=== PATIENT | female | born 1975 | race American Indian/Alaskan Native ===

== ENCOUNTER 2021-03-28 07:51 | Inpatient (IN) | payer MEDICAID ==
[2021-03-26 10:04] LABS: Basophils # (Auto) 0.1 K/mm3 (0.0-0.1); Basophils % (Auto) 2.1 % (0.0-1.8); Eosinophils # (Auto) 0.3 K/mm3 (0.0-0.4); Eosinophils % (Auto) 6.5 % (0.0-4.3); Lymphocytes # (Auto) 1.9 K/mm3 (1.2-5.4); Lymphocytes % (Auto) 36.6 % (13.4-35.0); Mean Corpuscular HGB Conc 29 % (30-34); Monocytes # (Auto) 0.7 K/mm3 (0.0-0.8); Monocytes % (Auto) 13.5 % (0.0-7.3); Platelet Count 625 K/mm3 (140-440); Red Cell Distribution Width 17.7 % (13.2-15.2)
[2021-03-26 10:20] LABS: Hematocrit 25.6 % (30.3-42.9); Hemoglobin 7.5 gm/dl (10.1-14.3); Mean Corpuscular Volume 66 fl (79-97)
[~2021-03-28 07:51] MED LIST: ACETAMINOPHEN 500 MG TAB PO NR; BUPIVACAINE/PF (0.5%) 5 MG/1 ML 30 ML VIAL INFILTRATI ONE; CELECOXIB 200 MG CAP PO NR; MAGNESIUM OXIDE 400 MG TAB PO NR; MIDAZOLAM 2 MG/2 ML INJ IV NR; SODIUM CHLORIDE 0.9% IRR 1,500 ML BOTTLE IR ONE; fentaNYL 100 MCG/2 ML INJ IV NR
[2021-03-28] MEDS ORDERED: SODIUM CHLORIDE 0.9% 500 ML 500 ML IV NR (08:00)
[2021-03-28] MEDS ORDERED: BUPIVACAINE/PF (0.5%) 5 MG/1 ML 30 ML VIAL INFILTRATI ONE (11:54)
[2021-03-28] MEDS ORDERED: fentaNYL 100 MCG/2 ML INJ IV PRN (12:00)
[2021-03-28] MEDS ORDERED: MORPHINE 2 MG/1 ML INJ IV PRN (12:00)
--- NOTE | 2021-03-28 12:02 | Anesthesia Day of Surgery ---
Anesthesia Day of Surgery - Day of Surgery Patient Examined: Yes Patient H&P Reviewed: Yes Patient is NPO: Yes
--- NOTE | 2021-03-28 12:02 | Anesthesia Consultation ---
Anesthesia Consult and Med Hx Date of service: 03/28/21 - Airway Anesthetic Teeth Evaluation: Good ROM Head & Neck: Adequate Mental/Hyoid Distance: Adequate Mallampati Class: Class II Intubation Access Assessment: Good - Pre-Operative Health Status ASA Pre-Surgery Classification: ASA2 Proposed Anesthetic Plan: General Nerve Block: TAP - Pulmonary Hx Smoking: No - Central Nervous System Hx Psychiatric Problems: No - Gastrointestinal Hx Gastroesophageal Reflux Disease: No - Hematic Hx Anemia: Yes (7.5/25.6) Hx Sickle Cell Disease: No - Other Systems Hx Cancer: No Hx Obesity: No
[2021-03-28] MEDS: LACTATED RINGERS 1,000 ML IV SCH ×2 (12:25→22:31)
[2021-03-28] MEDS ORDERED: ONDANSETRON 4 MG/2 ML INJ IV PRN ×2 (12:52→17:51)
[2021-03-28] MEDS ORDERED: CITRIC ACID-SOD CITRATE 500 ML IV ONE (12:57)
[2021-03-28] MEDS ORDERED: ACETAMINOPHEN 500 MG TAB PO ONE (13:00)
[2021-03-28] MEDS ORDERED: MAGNESIUM OXIDE 400 MG TAB PO ONE (13:00)
[2021-03-28] MEDS ORDERED: BUPIVACAINE/PF (0.25%) 2.5 MG/ML 30 ML VIAL INFILTRATI ONE (13:30)
[2021-03-28] MEDS ORDERED: dexAMETHasone 4 MG/ML VIAL ONE (13:30)
[2021-03-28] MEDS ORDERED: ceFAZolin/STERILE WATER 2 GM/20 ML SYRINGE IV NR (13:42)
[2021-03-28] MEDS ORDERED: ceFAZolin/Water 2 GM/20 ML 2 GM/20 ML SYRINGE IV ONE (13:49)
[2021-03-28] MEDS ORDERED: HYDROmorphone 1 MG/1 ML INJ ONE (14:01)
[2021-03-28] MEDS ORDERED: ROCURONIUM 50 MG/5 ML INJ IV ONE (14:02)
[2021-03-28] MEDS ORDERED: LIDOCAINE MPF (2%) 20 MG/1 ML VIAL 5 ML ONE (14:02)
[2021-03-28] MEDS ORDERED: propofoL 200 MG/20 ML VIAL IV ONE (14:02)
[2021-03-28] MEDS ORDERED: SODIUM CHLORIDE 0.9% IRR 1,500 ML BOTTLE IR ONE (15:11)
[2021-03-28] MEDS ORDERED: CITRIC ACID-SOD CITRATE SOLN 500 ML IV SOLN IV ONE (15:11)
[2021-03-28] MEDS ORDERED: dexAMETHasone 20 MG/5 ML VIAL ONE (15:58)
[2021-03-28] MEDS ORDERED: ONDANSETRON 4 MG/2 ML INJ ONE (15:58)
[2021-03-28] MEDS ORDERED: LACTATED RINGERS 1,000 ML ONE (16:11)
[2021-03-28] MEDS ORDERED: NEOSTIGMINE 10MG/10 ML INJ MDV ONE (17:42)
[2021-03-28] MEDS ORDERED: GLYCOPYRROLATE 0.4 MG/2 ML INJ ONE (17:42)
[2021-03-28] MEDS ORDERED: KETOROLAC 30 MG/1 ML INJ ONE (17:42)
[2021-03-28] MEDS ORDERED: HYDROmorphone 1 MG/1 ML INJ IV PRN (17:51)
[2021-03-28] MEDS ORDERED: KETOROLAC 30 MG/1 ML INJ IV PRN (17:51)
[2021-03-28] MEDS ORDERED: ACETAMINOPHEN 325 MG TAB PO PRN (17:51)
--- NOTE | 2021-03-28 18:20 | Post Anesthesia Evaluation ---
- Post Anesthesia Evaluation Patient Participated: Yes Airway Patent: Yes Stable Respiratory Function: Yes Nausea/Vomiting: No Temp > 96.8F: Yes Pain Manageable: Yes Adequeate Hydration: Yes Anesthesia Complications: No Block Receding Appropriately: Yes Patient on Ventilator: No
--- NOTE | 2021-03-28 18:24 | Procedure Note ---
Date of procedure: 03/28/21 Pre-op diagnosis: symptomatic uterine fibroids, severe anemia, pelvic pain Post-op diagnosis: same Procedure: Preop: symptomatic uterine fibroids, previous tubal ligation, desires definitive procedure, severe anemia, pelvic pain. Postop: same and areas of endometriotic implants/adenomyosis seen to lower uterine segment near cervix Procedure: Total abdominal hysterectomy and bilateral Salpingectomy with lysis of adhesions After the risks, benefits and alternatives of the procedure was discussed, pt signed consents and was taken to the OR via stretcher. Pt was given tap block Time out done, Pt given general anesthesia and when same was adequate, pt was prepped and draped in usual sterile fashion and cerda cath placed. Pt was given antibiotics per SCIP protocol Pfanennenstiel skin was made and taken sharply to the underlying layer of the fascia. The fascia was incised in the midline and extended bilaterally using electrocautery and also by blunt dissection. The superior and inferior aspect of the rectus fascia was taken down using electrocautery. The rectus muscle was then elevated centrally and the peritoneal cavity was entered sharply. The extensively omental adhesions were lysed using sharply until the bladder could clearly be seen. Moist laparotomy sponges were used to pack away the bowel and the O-Suni Beard retractor used for added exposure. Attention turned to the round ligaments bilaterally and same was transected with electrocautery on the right and ligasure device on the left. The bladder peritoneum was sharply taken down from right towards the left side and sponge stick used to push bladder downwards off the cervix. The uteroovarian ligament on the left was then transected using ligasure device and the distal segment of the fallopian tube removed. Additional figure of 8 sutures used for added hemostasis with more scarring noted on the left side. Left ovary wnl. Attention then turned to the right uteroovarian ligament and same clamped with lisseth and transected and doubly suture ligated. The uterine vessel were then skeletonized bilaterally and uterine vessels doubly clamped transected and suture ligated. Serial clamping using ligasure device down on left and until vaginal angle reached and same clamped with uterosacral ligament. The right side extensive adhesions that were lysed using metzenbaum and serial clamps placed using heany clamps, transection and suture ligation using 0-vicryl in a serial manner until the vaginal angles were reached the Uterosacral was clamped, transected and suture ligated then anchored to the right vaginal angle after cervix amputated. Care taken to do sharp dissection and then push the bladder flap downwards prior to removing the entire uterus and cervix attached. The vaginal cuff was closed with interrupted 0-vicryl suture. Electrocautery used to maintain hemostasis and surgicel powder as well. The bladder flap was closed with 3-0 vicryl centrally. Copious irrigation done to the pelvis with warm normal saline and all pedicles hemostatic. Instruments, laparotomy sponges were then removed and the anterior rectus and scar tissue closed with 0-vicryl in a running fashion Fascia then closed with 0-vicryl in a running fashion. Subcutaneous tissue irrigated with normal saline and reapproximated with 3-0 vicryl suture Skin closed with 4-0 monocryl in a subcutaneous fashion, steristrips placed and pressure dressing applied Pt extubated without difficulty and pt taken to recovery room stable. Sponge, lap, needle and instrument counts correct x2 INTAKE: 2000cc crystalloids and 2units PRBC OUTPUT: 150cc EBL: 200cc Complications: none Findings: Boggy 12-14 week size uterus with irregular contour and extensive scarring anterior towards the bladder, endometriotic dark fluid noted anterior with sharp dissection towards the bladder. Normal ovaries bilaterally. Right tube with cyst of morgagni and previous ligation to both tubes identified. Intraoperative omental adhesions extensive to anterior abdominal wall and upper portion of bladder. Normal appendix seen Anesthesia: WILLIAMA Surgeon: SUMA CASTILLO Oil Dispatcher: SUGAR HAYNES Estimated blood loss: other (200cc) Pathology: list (uterus attached to cervix, right distal tube with fimbriae and cyst of morgagni, left distal tube with fimbriae) Specimen disposition: to lab Condition: stable Disposition: PACU
[2021-03-28] MEDS: oxyCODONE /ACETAMINOPHEN 5-325MG TAB PO PRN (22:17)
[2021-03-28] MEDS: FAMOTIDINE 20 MG/2 ML INJ IV SCH (22:25)
--- NOTE | 2021-03-28 23:07 | Progress Note ---
Assessment and Plan - Patient Problems (1) Post-operative pain Current Visit: Yes Status: Acute Plan to address problem: will give the pt iv pain meds. otherwise the pt is recovering okay. Subjective Date of service: 03/28/21 Principal diagnosis: fibroids, aub Interval history: see h&p. Objective - Constitutional Vitals: Vital Signs - 12hr 03/28/21 03/28/21 03/28/21 12:10 12:26 12:27 Temperature 98.5 F Pulse Rate 72 Respiratory 16 16 16 Rate Blood Pressure 105/70 O2 Sat by Pulse 100 Oximetry 03/28/21 03/28/21 03/28/21 13:50 13:55 14:00 Temperature Pulse Rate 73 73 73 Respiratory 14 12 12 Rate Blood Pressure 117/70 112/69 109/70 O2 Sat by Pulse 100 100 100 Oximetry 03/28/21 03/28/21 03/28/21 14:05 17:47 17:50 Temperature 97.3 F L Pulse Rate 72 81 79 Respiratory 14 16 18 Rate Blood Pressure 114/70 130/80 130/81 O2 Sat by Pulse 100 99 99 Oximetry 03/28/21 03/28/21 03/28/21 17:55 18:00 18:15 Temperature Pulse Rate 80 83 83 Respiratory 18 18 16 Rate Blood Pressure 141/84 144/82 141/84 O2 Sat by Pulse 100 100 99 Oximetry 03/28/21 03/28/21 03/28/21 18:30 18:45 19:00 Temperature 97.3 F L Pulse Rate 80 78 81 Respiratory 16 18 18 Rate Blood Pressure 143/79 142/86 138/85 O2 Sat by Pulse 99 99 99 Oximetry General appearance: Present: mild distress - Gastrointestinal General gastrointestinal: Present: soft, non-tender, non-distended, normal bowel sounds, other (wound is soft, dressing dry.) - Labs CBC & Chem 7: 03/26/21 Unknown Labs: Abnormal lab results 03/28/21 Range/Units 11:50 Crossmatch See Detail Medications & Allergies - Medications Allergies/Adverse Reactions: Allergies codeine Allergy (Verified 03/23/21 18:54) Hives hydromorphone Allergy (Verified 03/23/21 18:54) Psychosis Home Medications: Home Medications Medication Instructions Recorded Confirmed Last Taken Type Clindamycin [Clindamycin CAP] 300 mg PO BID 03/26/21 03/28/21 03/27/21 History Active Medications: Generic Name Dose Route Start Last Admin Trade Name Anders PRN Reason Stop Dose Admin Acetaminophen 1,000 mg 03/28/21 06:00 03/28/21 12:27 Acetaminophen 500 Mg Tab PO 03/28/21 23:59 1,000 mg ONCE NR Administration Acetaminophen 650 mg 03/28/21 17:51 Acetaminophen 325 Mg Tab PO Q4H PRN Pain MILD(1-3)/Fever >100.5/LEDEZMA Cefazolin Sodium 2 gm 03/28/21 13:42 Cefazolin/Sterile Water 2 Gm/20 Ml Syringe IV 03/28/21 23:00 PREOP NR Celecoxib 400 mg 03/28/21 06:00 03/28/21 12:26 Celecoxib 200 Mg Cap PO 03/28/21 23:59 400 mg PREOP NR Administration Famotidine 20 mg 03/28/21 22:00 03/28/21 22:25 Famotidine 20 Mg/2 Ml Inj IV 03/30/21 21:59 20 mg BID MICK Administration Fentanyl 100 mcg 03/28/21 06:00 03/28/21 13:52 Fentanyl 100 Mcg/2 Ml Inj IV 03/28/21 23:59 100 mcg ONCE NR Administration Fentanyl 50 mcg 03/28/21 12:00 03/28/21 18:55 Fentanyl 100 Mcg/2 Ml Inj IV 03/29/21 11:59 50 mcg Q5MIN PRN Administration Pain , Severe (7-10) Hydromorphone HCl 0.5 mg 03/28/21 17:51 Hydromorphone 1 Mg/1 Ml Inj IV Q3H PRN Pain , Severe (7-10) Lactated Ringer's 1,000 mls @ 125 mls/hr 03/28/21 06:00 03/28/21 22:31 Lactated Ringers IV 125 mls/hr DIRECT MICK Administration Sodium Chloride 500 mls @ 0 mls/hr 03/28/21 08:00 03/28/21 14:05 Nacl 0.9% 500 Ml IV 03/28/21 23:59 100 mls/hr ONCE NR Administration As Directed Cefazolin Sodium 2 gm/ Sodium 100 mls @ 200 mls/hr 03/28/21 22:00 Chloride IV 03/29/21 14:29 Q8H MICK Protocol Ibuprofen 800 mg 03/28/21 18:20 Ibuprofen 800 Mg Tab PO Q8H PRN Pain, Moderate (4-6) Ketorolac Tromethamine 15 mg 03/28/21 17:51 03/28/21 22:21 Ketorolac 30 Mg/1 Ml Inj IV 04/02/21 17:50 15 mg Q6H PRN Administration Pain, Moderate (4-6) Magnesium Oxide 400 mg 03/28/21 06:00 03/28/21 12:27 Magnesium Oxide 400 Mg Tab PO 03/28/21 23:59 400 mg ONCE NR Administration Metoclopramide HCl 10 mg 03/28/21 18:00 Metoclopramide 10 Mg/2 Ml Inj IV 03/30/21 17:[address] [facility] Midazolam HCl 2 mg 03/28/21 06:00 03/28/21 13:52 Midazolam 2 Mg/2 Ml Inj IV 03/28/21 23:59 2 mg PREOP NR Administration Morphine Sulfate 2 mg 03/28/21 12:00 03/28/21 18:32 Morphine 2 Mg/1 Ml Inj IV 03/29/21 11:59 2 mg Q10MIN PRN Administration Pain, Moderate (4-6) Morphine Sulfate 4 mg 03/28/21 23:02 Morphine 4 Mg/1 Ml Inj IV Q3H PRN Pain , Severe (7-10) Ondansetron HCl 4 mg 03/28/21 17:51 Ondansetron 4 Mg/2 Ml Inj IV Q8H PRN N/V unrelieved by [place] Oxycodone/Acetaminophen 2 tab 03/28/21 17:51 Oxycodone /Acetaminophen 5-325mg Tab PO Q6H PRN Pain, Moderate (4-6)
[2021-03-28] MEDS: MORPHINE 4 MG/1 ML INJ IV PRN (23:32)
[2021-03-29] MEDS: MORPHINE 4 MG/1 ML INJ IV PRN ×3 (04:58→20:14)
[2021-03-29 05:43] LABS: Hematocrit 31.3 % (30.3-42.9); Hemoglobin 9.4 gm/dl (10.1-14.3); Lymphocytes # (Auto) 0.8 K/mm3 (1.2-5.4); Lymphocytes % (Auto) 6.6 % (13.4-35.0); Mean Corpuscular HGB Conc 30 % (30-34); Mean Corpuscular Volume 72 fl (79-97); Monocytes # (Auto) 0.8 K/mm3 (0.0-0.8); Monocytes % (Auto) 7.2 % (0.0-7.3); Platelet Count 417 K/mm3 (140-440); Red Blood Count 4.35 M/mm3 (3.65-5.03)
[2021-03-29 05:45] LABS: Red Cell Distribution Width 22.5 % (13.2-15.2)
[2021-03-29 05:54] LABS: Blood Urea Nitrogen 9 mg/dL (7-17); Calcium 8.4 mg/dL (8.4-10.2); Hemolysis Index 0
[2021-03-29 05:56] LABS: BUN/Creatinine Ratio 15
[2021-03-29] MEDS: METOCLOPRAMIDE 10 MG/2 ML INJ IV SCH ×3 (06:09→18:56)
--- NOTE | 2021-03-29 09:53 | Progress Note ---
Assessment and Plan routine postop care Ulices George MD Subjective - Subjective Date of service: 03/29/21 Principal diagnosis: fibroids, aub Interval history: POD#1, S/P ANTON Objective - Vital Signs Latest vital signs: Vital Signs Temp Pulse Resp BP BP Pulse Ox 03/29/21 08:21 98.4 F 73 16 109/69 96 03/29/21 04:34 98.6 F 74 20 114/75 100 03/28/21 23:51 98.0 F 83 20 125/80 100 03/28/21 19:50 100 03/28/21 19:40 98.7 F 86 18 138/79 99 03/28/21 19:00 81 18 138/85 99 03/28/21 18:45 97.3 F L 78 18 142/86 99 03/28/21 18:30 80 16 143/79 99 03/28/21 18:15 83 16 141/84 99 03/28/21 18:00 83 18 144/82 100 03/28/21 17:55 80 18 141/84 100 03/28/21 17:50 79 18 130/81 99 03/28/21 17:47 97.3 F L 81 16 130/80 99 03/28/21 14:05 72 14 114/70 100 03/28/21 14:00 73 12 109/70 100 03/28/21 13:55 73 12 112/69 100 03/28/21 13:50 73 14 117/70 100 03/28/21 12:27 16 03/28/21 12:26 16 03/28/21 12:10 98.5 F 72 16 105/70 100 Intake and Output 03/28/21 03/29/21 03/29/21 23:59 07:59 15:59 Intake Total 1300 220 Output Total 250 500 Balance 1050 -280 Intake: IV 1300 100 Lactated Ringers 1,000 ml 1000 @ 125 mls/hr IV DIRECT MICK Rx#:[id number] ceFAZolin 2 GM In NaCl 0. 100 9% 100 ml @ 200 mls/hr IV Q8H MICK Rx#:[id number] Oral 120 Output: Urine 250 500 Indwelling Catheter 500 Other: Total, Intake Amount 120 Total, Output Amount 200 Voiding Method Indwelling Catheter Weight 79.832 kg - Exam Breasts: Present: deferred Cardiovascular: Present: Regular rate Lungs: Present: Clear to auscultation Abdomen: Present: normal appearance, soft, normal bowel sounds Extremities: Present: normal Deep Tendon Reflex Grade: Normal +2 Incision: Present: normal, dry, intact, dressed - Labs Labs: Abnormal lab results 03/28/21 03/29/21 03/29/21 Range/Units 11:50 04:09 04:09 WBC 11.7 H (4.5-11.0) K/mm3 Hgb 9.4 L (10.1-14.3) gm/dl MCV 72 L (79-97) fl MCH 22 L (28-32) pg RDW 22.5 H (13.2-15.2) % Lymph % (Auto) 6.6 L (13.4-35.0) % Lymph # (Auto) 0.8 L (1.2-5.4) K/mm3 Seg Neutrophils % 86.2 H (40.0-70.0) % Seg Neutrophils # 10.1 H (1.8-7.7) K/mm3 Chloride 107.1 H (98-107) mmol/L Glucose 119 H (65-100) mg/dL Crossmatch See Detail
[2021-03-29] MEDS: LACTATED RINGERS 1,000 ML IV SCH (11:41)
[2021-03-29] MEDS: FAMOTIDINE 20 MG/2 ML INJ IV SCH (11:42)
[2021-03-29] MEDS: oxyCODONE /ACETAMINOPHEN 5-325MG TAB PO PRN (13:03)
[2021-03-29] MEDS ORDERED: PHENOL 1.4% 177 ML BOTTLE MM PRN (13:55)
[2021-03-29] MEDS ORDERED: MAGNESIUM HYDROXIDE (MOM) ORAL LIQD UDC PO PRN (13:56)
[2021-03-29] MEDS ORDERED: SIMETHICONE 80 MG CHEW TAB PO PRN (13:56)
--- NOTE | 2021-03-29 14:00 | Event Note ---
Date: 03/29/[address] George. pt seen and doing well. pt taken out of bed by me, no flatus as yet. dressing remain intact, clean and dry. Pt without vag bleeding and voids without difficulty. Routine post op care. Chloraseptic spray, MOM and simethecone ordered prn. All questions encouraged and answered. Pt agrees with plan of care.
[2021-03-30] MEDS: IBUPROFEN 800 MG TAB PO PRN ×3 (00:46→22:57)
[2021-03-30] MEDS: FAMOTIDINE 20 MG/2 ML INJ IV SCH ×3 (00:46→10:19)
[2021-03-30] MEDS: METOCLOPRAMIDE 10 MG/2 ML INJ IV SCH ×5 (00:46→18:58)
[2021-03-30] MEDS: oxyCODONE /ACETAMINOPHEN 5-325MG TAB PO PRN (10:13)
--- NOTE | 2021-03-30 15:22 | Progress Note ---
Subjective - Subjective Date of service: 03/30/21 Principal diagnosis: fibroids, aub Interval history: POD#2, S/P ANTON -tolerating PO -no VB -pain poorly controlled -pt reluctant to ambulate- is able to ambulate without difficulty and is up to chair ad gigi -no flatus Pt stable, conbtinue current postop care d/c to home in AM tomorrow Ulices George MD Objective - Vital Signs Latest vital signs: Vital Signs Temp Pulse Resp BP BP Pulse Ox 03/30/21 12:52 97.7 F 73 17 115/73 98 03/30/21 08:00 100 03/30/21 07:41 97.9 F 79 18 104/61 96 03/30/21 05:00 98.6 F 68 18 107/68 03/30/21 00:16 98.0 F 78 18 132/81 100 03/29/21 20:14 18 03/29/21 20:01 98.0 F 77 18 114/71 100 03/29/21 19:30 98 03/29/21 15:52 98.2 F 89 18 118/78 98 Intake and Output 03/29/21 03/30/21 03/30/21 23:59 07:59 15:59 Intake Total 500 400 240 Output Total 300 300 Balance 200 100 240 Intake: Oral 200 400 240 Intake, Free Water 300 Output: Urine 300 300 Void 300 300 Other: Total, Intake Amount 200 200 240 Total, Output Amount 300 300 Voiding Method Toilet Toilet # Voids Void 1
--- NOTE | 2021-03-30 15:27 | Discharge Summary ---
Providers - Providers Date of Admission: 03/28/21 10:57 Date of discharge: 03/31/21 Attending physician: SUMA CASTILLO Primary care physician: ROAD MENDER Hospitalization Reason for admission: other (ANTON) Condition at discharge: Stable Disposition: 01 HOME / SELF CARE / HOMELESS Plan - Discharge Medications Prescriptions: clindamycin HCL [Clindamycin HCl] 300 mg PO BID 7 Days #14 capsule Ibuprofen [Motrin] 600 mg PO Q8H PRN #60 tablet PRN Reason: Pain oxyCODONE /ACETAMINOPHEN [Percocet 5/325] 1 tab PO Q6HR PRN #20 tablet PRN Reason: Pain - Provider Discharge Summary Activity: no sex for 6 weeks Diet: routine Additional instructions: [] Smoking cessation referral if applicable(refer to patient education folder for contact #) [] Refer to [facility] Booklet Call your doctor immediately for: * Fever > 100.5 * Heavy vaginal bleeding ( >1 pad per hour) * Severe persistent headache * Shortness of breath * Reddened, hot, painful area to leg or breast * Drainage or odor from incision. * Keep incision clean and dry at all times and follow doctor's instructions regarding bathing/showering - Follow up plan Follow up: PRIMARY CARE, [Primary Care Provider] - 7 Days Forms: [facility] Discharge Summary
[2021-03-31] MEDS: IBUPROFEN 800 MG TAB PO PRN (09:25)
[2021-03-31 09:45] VITALS: BP 114/73
--- NOTE | 2021-03-31 10:08 | Progress Note ---
Subjective - Subjective Date of service: 03/31/21 Principal diagnosis: fibroids, aub Interval history: POD#3 S/P ANTON -tolerating PO -no VB +ve flatus Pt stable,D/C to home Ulices George MD Patient reports: appetite normal, voiding normally, pain well controlled, ambulating normally Objective - Vital Signs Latest vital signs: Vital Signs Temp Pulse Resp Resp BP Pulse Ox 03/31/21 08:00 100 03/31/21 07:55 98.4 F 72 18 114/73 98 03/31/21 05:51 98.5 F 75 18 113/82 98 03/31/21 00:21 99.5 F 78 18 113/77 99 03/30/21 22:57 18 18 03/30/21 21:17 99.3 F 78 15 105/63 99 03/30/21 19:30 98 03/30/21 16:43 98.1 F 93 H 18 119/74 100 03/30/21 12:52 97.7 F 73 17 115/73 98 Intake and Output 03/30/21 03/31/21 03/31/21 23:59 07:59 15:59 Intake Total 1040 240 Balance 1040 240 Intake: Oral 560 Intake, Free Water 480 240 Other: Total, Intake Amount 200 Voiding Method Toilet Toilet # Voids Void 1 2 - Exam Breasts: Present: deferred Cardiovascular: Present: Regular rate Lungs: Present: Clear to auscultation Abdomen: Present: normal appearance, normal bowel sounds Uterus: Present: normal Extremities: Present: normal Deep Tendon Reflex Grade: Normal but brisk +3
== END 2021-03-31 11:45 | disposition home or self-care (01) | DRG 743 ==
LOC: 3A 10:57 → OB 18:48
PROVIDERS: ADMIT Obstetrics & Gynecology; ATTEND Obstetrics & Gynecology
PROC: 0UT90ZZ Resection of Uterus, Open Approach (ICD-10-PCS; principal; 2021-03-28)
PROC: 0UT70ZZ Resection of Bilateral Fallopian Tubes, Open Approach (ICD-10-PCS; 2021-03-28)
PROC: 30233N1 Transfusion of Nonautologous Red Blood Cells into Peripheral Vein, Percutaneous Approach (ICD-10-PCS; 2021-03-28)
DX: D25.9 Leiomyoma of uterus, unspecified (principal); N80.0 Endometriosis of uterus; D64.9 Anemia, unspecified; Z98.51 Tubal ligation status; G89.18 Other acute postprocedural pain; Z20.822 Contact with and (suspected) exposure to COVID-19
CPT/HCPCS: 36415; 64450; 80048; 84703; 85025; 86850; 86900; 86901; 86920; 88302; 88307; G0378; J0690; J1100; J1170; J1885; J2250; J2270; J2405; J2704; J2710; J2765; J3010; J7040; J7120; P9016; U0003